=== PATIENT | female | born 1960 ===

== ENCOUNTER → 2017-11-02 | Outpatient (REF) ==
--- NOTE | 2017-11-02 15:49 | RADIOLOGY IMAGING REPORT ---
FACILITY: [facility] PATIENT NAME: Ashtyn Jones : 1960 MR: [id number] V: [id number] EXAM DATE: ORDERING PHYSICIAN: SAMMY RAMIREZ TECHNOLOGIST: Location: [facility] Patient: Ashtyn Jones : 1960 Visit/Account:[id number] Date of Sevice: 11/02/2017 EXAMINATION: Limited right upper quadrant ultrasound 11/02/2017 10:00 AM HISTORY: Hepatitis C. COMPARISON STUDIES: none. FINDINGS: Gallbladder: Negative Liver: Echogenicity of the liver is mildly diffusely increased compared to renal echogenicity. No fo sussy mass. Capsular contours are smooth. Liver is mildly prominent with a craniocaudal length of jus t over 18 cm. Common duct: 4 mm Pancreas: negative Right kidney: 8.6 x 4.1 x 4.7 cm. Otherwise unremarkable. No mass, stone, or obstruction evident. Upper abdominal aorta and IVC: negative Ascites: none IMPRESSION: 1. Mildly prominent echogenic liver consistent with fatty infiltration. 2. No acute biliary finding. 3. Mildly small right kidney. Report Dictated By: Shen Sewell MD at 11/02/2017 3:43 PM Report E-Signed By: Shen Sewell MD at 11/02/2017 3:45 PM WSN:MARY
== END ==
LOC: US 02:05
PROVIDERS: ATTEND Nurse Practitioner
DX: B17.10 Acute hepatitis C without hepatic coma (principal)
CPT/HCPCS: 76705